=== PATIENT | female | born 2000 | race African-American/Black ===

== ENCOUNTER 2021-11-13 06:15 | Inpatient (IN) ==
[2021-11-13] MEDS ORDERED: LR 1,000 ML IV 1,000 ML IV ONE (06:34)
[2021-11-13] MEDS ORDERED: ANCEF VIAL 1 GRAM ONE (06:34)
[2021-11-13] MEDS ORDERED: NS 100 ML IV 100 ML ONE (06:37)
[2021-11-13] MEDS ORDERED: NS 250 ML IV 250 ML IV ONE (06:43)
[2021-11-13] MEDS ORDERED: ANCEF VIAL 1 GRAM IVP ONE (06:56)
[2021-11-13] MEDS ORDERED: NEO-SYNEPHRINE INJ ONE (06:56)
[2021-11-13] MEDS ORDERED: PRECEDEX INJ VIAL IVP ONE (06:56)
[2021-11-13] MEDS ORDERED: PEPCID 20 MG VIAL ONE (06:57)
[2021-11-13] MEDS ORDERED: DILAUDID INJ ONE (06:57)
[2021-11-13] MEDS ORDERED: MARCAINE SPINAL ONE (06:57)
[2021-11-13] MEDS ORDERED: ZOFRAN INJ 4 MG VIAL ONE (06:57)
[2021-11-13] MEDS ORDERED: PITOCIN ONE ×2 (06:57→08:30)
[2021-11-13] MEDS ORDERED: ZITHROMAX INJ 500 MG VIAL 250 MG in NS 250 ML IV 250 ML IV ONE (07:00)
[2021-11-13 07:49] LABS: BLOOD UREA NITROGEN 3 mg/dL (7-18); CALCIUM 8.8 mg/dL (8.5-10.1); CARBON DIOXIDE 27.3 mmol/L (21-32); CHLORIDE 104 mmol/L (98-107); CREATININE 0.56 mg/dL (0.55-1.02); SODIUM 139 mmol/L (136-145); eGFR NON BLACK RACES > 60 (>60)
[2021-11-13 07:54] LABS: BASOPHILS # (AUTO) 0.1 X10^3/uL (0.0-0.1); BASOPHILS % (AUTO) 1.3 % (0.2-1.0); EOSINOPHILS # (AUTO) 0.1 x10^3/uL (0.0-0.2); HEMATOCRIT 38.7 % (36.0-47.0); HEMOGLOBIN 13.1 g/dL (12.0-16.0); LYMPHOCYTES # (AUTO) 2.4 X10^3/uL (1.3-2.9); LYMPHOCYTES % (AUTO) 22.3 % (21.0-51.0); MEAN CORPUSCULAR HEMOGLOBIN 27.3 pg (27.0-34.0); MEAN CORPUSCULAR VOLUME 80.4 fL (80.0-100.0); MEAN PLATELET VOLUME 9.5 fL (7.4-11.0); MONOCYTES # (AUTO) 0.7 x10^3/uL (0.3-0.8); MONOCYTES % (AUTO) 6.5 % (0.0-13.0); NEUTROPHILS # (AUTO) 7.4 x10^3/uL (2.2-4.8); NEUTROPHILS % (AUTO) 68.9 % (42.0-75.0); RED BLOOD COUNT 4.81 X10^6/uL (3.5-5.4); RED CELL DISTRIBUTION WIDTH 14.5 % (11.6-16.5); WHITE BLOOD COUNT 10.7 X10^3/uL (3.6-10.0)
[2021-11-13] MEDS ORDERED: ANCEF VIAL 1 GRAM 2 G in NS 100 ML IV 100 ML IV NR (08:00)
[2021-11-13] MEDS ORDERED: XYLOCAINE 2 % (PLAIN) ONE (08:30)
[2021-11-13] MEDS ORDERED: TORADOL 30 MG VIAL ONE (09:02)
[2021-11-13] MEDS ORDERED: DILAUDID INJ IVP PRN (09:17)
[2021-11-13] MEDS ORDERED: ZOFRAN INJ 4 MG VIAL IVP PRN (09:17)
[2021-11-13] MEDS ORDERED: BENADRYL INJ 50 MG VIAL IVP PRN ×2 (09:17→09:18)
[2021-11-13] MEDS ORDERED: BARHEMSYS INJ IVP PRN (09:17)
[2021-11-13] MEDS ORDERED: PHENERGAN INJ 25 MG IM PRN ×2 (09:17→09:29)
[2021-11-13] MEDS ORDERED: REGLAN INJ 10 MG VIAL IVP PRN (09:17)
[2021-11-13] MEDS ORDERED: TORADOL 30 MG VIAL IVP PRN (09:18)
[2021-11-13] MEDS ORDERED: NARCAN INJ IVP PRN (09:18)
[2021-11-13] MEDS ORDERED: PERCOCET TAB 5/325 MG PO PRN ×2 (09:18→09:29)
[2021-11-13 09:19] LABS: BILIRUBIN,URINE NEGATIVE (NEGATIVE); BLOOD/HEMOGLOBIN,URINE NEGATIVE (NEGATIVE); GLUCOSE, URINE NEGATIVE (NEGATIVE); KETONES,URINE NEGATIVE (NEGATIVE); LEUKOCYTE ESTERASE ,URINE NEGATIVE (NEGATIVE); NITRITES,URINE NEGATIVE (NEGATIVE); PROTEIN,URINE NEGATIVE (NEGATIVE); UROBILINOGEN,URINE NORMAL (NORMAL)
[2021-11-13 09:21] LABS: APPEARANCE,URINE CLEAR (CLEAR); COLOR,URINE STRAW (YELLOW)
[2021-11-13] MEDS ORDERED: MYLICON TAB 80 MG CHEW PO PRN (09:29)
[2021-11-13] MEDS ORDERED: ADACEL or BOOSTRIX TDaP VACCINE IM ONE (09:29)
[2021-11-13] MEDS ORDERED: ZOFRAN TAB 4 MG PO PRN (09:29)
[2021-11-13] MEDS ORDERED: D5 1/2 NS 1,000 ML 1,000 ML with PITOCIN 20 UNITS IV SCH ×2 (10:00)
[2021-11-13] MEDS ORDERED: ZOFRAN INJ 4 MG VIAL IVP SCH (10:00)
[2021-11-13] MEDS: TORADOL 30 MG VIAL IVP SCH ×2 (11:00→22:13)
[2021-11-14] MEDS: TORADOL 30 MG VIAL IVP SCH (03:39)
[2021-11-14 05:32] LABS: HEMATOCRIT 34.3 % (36.0-47.0); HEMOGLOBIN 11.4 g/dL (12.0-16.0)
--- NOTE | 2021-11-14 08:21 | NOTE.PROBC ---
Progress Note OB-C/S Subjective Data Subjective: No complaints, decreased lochia. Tolerating regtular diet. No N/V. Ambulating well. Phillips draining well. Pain under good control with Toradol. Objective Data Result Diagrams: 11/14/21 04:55 11/13/21 07:26 Objective Data: CV= RRR no MRG Lungs=CTA Bilaterally Abd=(+) BS, soft, ND, appropriately tender near incision. Bandage removed. Incision clean/dry/intact, no erythema, no bleeding, no discharge. Dermabond/Stitches intact. Fundus firm/NT/ at -2 cm below umbilicus. Ext= No edema, NT, No Cords. Graduated Compression Stockings/Sequential Compression Devices Bilaterally. Assessment Assessment: requesting early D/C Plan (1) delivery delivered:
[2021-11-14] MEDS ORDERED: PRENATAL PLUS PO SCH (09:00)
[2021-11-14] MEDS ORDERED: TORADOL 30 MG VIAL IM PRN (09:31)
[2021-11-14] MEDS ORDERED: TORADOL 30 MG VIAL IVP PRN (09:31)
[2021-11-14 09:46] VITALS: BP 122/63
== END 2021-11-14 12:30 | disposition home or self-care (01) | DRG 788 ==
LOC: LD 06:15 → MED/SURG 10:46
PROVIDERS: ADMIT Obstetrics & Gynecology; ATTEND Obstetrics & Gynecology
DX: O34.83 Maternal care for other abnormalities of pelvic organs, third trimester; O65.1 Obstructed labor due to generally contracted pelvis; Z37.0 Single live birth; Z3A.41 41 weeks gestation of pregnancy; Z20.822 Contact with and (suspected) exposure to COVID-19